=== PATIENT | female | born 1995 | race Caucasian/White ===

== ENCOUNTER 2020-08-14 18:35 | Outpatient (CLI) | payer MEDICAID ==
[~2020-08-14] VITALS: Ht 167.6 cm; Wt 101.8 kg
[2020-08-14 19:07] VITALS: BP 115/57
[2020-08-14 19:59] LABS: MICROSCOPIC NOT IND
[2020-08-14 20:10] LABS: AMPHETAMINE SCREEN, URINE Negative (Negative); BARBITURATE SCREEN, URINE Negative (Negative); BENZODIAZEPINE SCREEN, URINE Negative (Negative); CANNABINOID SCREEN, URINE Negative (Negative); COCAINE SCREEN, URINE Negative (Negative); METHADONE SCREEN, URINE Negative (Negative); OPIATE SCREEN, URINE Negative (Negative)
== END 2020-08-14 20:18 | disposition home or self-care (01) ==
LOC: LDOP 18:35
PROVIDERS: ATTEND Obstetrics & Gynecology
DX: O36.8130 Decreased fetal movements, third trimester, not applicable or unspecified (principal); Z3A.35 35 weeks gestation of pregnancy
CPT/HCPCS: 59025; 76819; 80307; 81003; 87086

== ENCOUNTER 2020-09-12 05:35 | Inpatient (IN) | payer MEDICAID ==
[~2020-09-12] VITALS: Ht 167.6 cm; Wt 106.8 kg
[2020-09-12] MEDS ORDERED: FENTANYL PF 100 MCG/2ML IVPush PRN (06:30)
[2020-09-12] MEDS ORDERED: SODIUM CITRATE/CITRIC ACID 30 ML UDC PO PRN (06:30)
[2020-09-12] MEDS ORDERED: OXYTOCIN 30U/ 0.9% NaCL 500ML 500 ML IV PRN (06:30)
[2020-09-12] MEDS ORDERED: METOCLOPRAMIDE 5 MG/ML, 2ML IVPush PRN (06:30)
[2020-09-12] MEDS ORDERED: D5%-LACTATED RINGERS 1,000 ML IV SCH (06:30)
[2020-09-12] MEDS ORDERED: TERBUTALINE 1 MG/ML, 1ML SQ PRN (06:30)
[2020-09-12] MEDS ORDERED: OXYTOCIN 30U/ 0.9% NaCL 500ML 500 ML IV ONE (06:30)
[2020-09-12] MEDS ORDERED: TERBUTALINE 1 MG/ML, 1ML IVPush PRN (06:30)
[2020-09-12] MEDS ORDERED: FENTANYL PF 100 MCG/2ML IV PRN (06:30)
[2020-09-12] MEDS ORDERED: LACTATED RINGERS 1,000 ML IV SCH ×2 (06:30→14:00)
[2020-09-12 07:05] LABS: BASOPHILS % (AUTO) 0 % (0-1); EOSINOPHILS % (AUTO) 1 % (1-7); LYMPHOCYTES % (AUTO) 22 % (22-44); MEAN CORPUSCULAR HEMOGLOBIN 31.7 pg (27.0-34.8); MEAN CORPUSCULAR HGB CONC 34.9 g/dL (32.4-35.8); MEAN PLATELET VOLUME 8.9 fL (7.4-10.4); MONOCYTES % (AUTO) 5 % (2-9); NEUTROPHILS % (AUTO) 72 % (42-75); PLATELET COUNT 199 x10^3/uL (130-400); RED BLOOD COUNT 3.46 x10^6/uL (3.82-5.3); RED CELL DISTRIBUTION WIDTH 12.8 % (9.6-15.2)
[2020-09-12 08:00] VITALS: BP 115/71
[2020-09-12] MEDS ORDERED: MISOPROSTOL 25 MCG TABLET ONE (08:06)
[2020-09-12 08:25] LABS: AMPHETAMINE SCREEN, URINE Negative (Negative); BARBITURATE SCREEN, URINE Negative (Negative); BENZODIAZEPINE SCREEN, URINE Negative (Negative); CANNABINOID SCREEN, URINE Negative (Negative); COCAINE SCREEN, URINE Negative (Negative); METHADONE SCREEN, URINE Negative (Negative); OPIATE SCREEN, URINE Negative (Negative)
[2020-09-12] MEDS ORDERED: MISOPROSTOL 25 MCG TABLET VG PRN (08:30)
[2020-09-12] MEDS ORDERED: PLEASE ENTER HEIGHT AND WEIGHT MC SCH ×2 (09:00)
[2020-09-12] MEDS ORDERED: BUPIVACAINE 0.25% ONE (13:16)
[2020-09-12] MEDS ORDERED: FENTANYL/BUPIV./NS/PF 250 ML EPIDCONT ONE (13:17)
[2020-09-12] MEDS ORDERED: EPHEDRINE 50 MG/ML, 1ML IVPush PRN (14:00)
[2020-09-12] MEDS ORDERED: FENTANYL/BUPIV./NS/PF 250 ML EPIDCONT SCH (14:00)
[2020-09-12] MEDS ORDERED: LACTATED RINGERS 1,000 ML IVBOLUS PRN (14:00)
[2020-09-12] MEDS ORDERED: LIDOCAINE 1%, 20ML ONE (16:32)
[2020-09-12] MEDS ORDERED: MISOPROSTOL 200 MCG TABLET ONE (16:33)
[2020-09-12] MEDS ORDERED: IBUPROFEN 600 MG TABLET ONE (19:00)
[2020-09-12] MEDS: OXYTOCIN 30U/ 0.9% NaCL 500ML 500 ML IV SCH (19:15)
[2020-09-12] MEDS: IBUPROFEN 600 MG TABLET PO PRN (19:15)
[2020-09-12] MEDS ORDERED: METHYLERGONOVINE 0.2 MG/ML IM PRN (20:00)
[2020-09-12] MEDS ORDERED: DOCUSATE 100 MG CAPSULE PO PRN (20:00)
[2020-09-12] MEDS ORDERED: HYDROcodone/APAP 5/325 TABLET PO PRN ×2 (20:00)
[2020-09-12] MEDS ORDERED: SIMETHICONE 80 MG CHEW TAB PO PRN (20:00)
[2020-09-12] MEDS ORDERED: ONDANSETRON 2MG/ML, 2ML IV PRN (20:00)
[2020-09-12] MEDS ORDERED: MISOPROSTOL 200 MCG TABLET PR PRN (20:00)
[2020-09-12 21:40] VITALS: BP 105/66
[2020-09-13 01:17] VITALS: BP 114/72
[2020-09-13] MEDS: IBUPROFEN 600 MG TABLET PO PRN ×2 (02:02→14:29)
[2020-09-13 02:33] LABS: BASOPHILS % (AUTO) 0 % (0-1); EOSINOPHILS % (AUTO) 1 % (1-7); LYMPHOCYTES % (AUTO) 19 % (22-44); MEAN CORPUSCULAR HEMOGLOBIN 31.2 pg (27.0-34.8); MEAN CORPUSCULAR HGB CONC 34.8 g/dL (32.4-35.8); MEAN PLATELET VOLUME 8.6 fL (7.4-10.4); MONOCYTES % (AUTO) 5 % (2-9); NEUTROPHILS % (AUTO) 76 % (42-75); PLATELET COUNT 175 x10^3/uL (130-400); RED BLOOD COUNT 3.37 x10^6/uL (3.82-5.3); RED CELL DISTRIBUTION WIDTH 12.8 % (9.6-15.2)
[2020-09-13 04:50] VITALS: BP 98/61
[2020-09-13] MEDS: OXYTOCIN 30U/ 0.9% NaCL 500ML 500 ML IV SCH (06:00)
[2020-09-13 07:45] VITALS: BP 115/71
[2020-09-13] MEDS ORDERED: PRENATAL VIT/IRON/FA 1 EACH TABLET PO SCH (09:00)
[2020-09-13 12:06] VITALS: BP 124/81
== END 2020-09-13 19:00 | disposition home or self-care (01) | DRG 807 ==
LOC: LDIP 05:35 → 2NW 21:17
PROVIDERS: ADMIT Obstetrics & Gynecology; ATTEND Obstetrics & Gynecology
PROC: 10E0XZZ Delivery of Products of Conception, External Approach (ICD-10-PCS; principal; 2020-09-12)
PROC: 0KQM0ZZ Repair Perineum Muscle, Open Approach (ICD-10-PCS; 2020-09-12)
PROC: 10907ZC Drainage of Amniotic Fluid, Therapeutic from Products of Conception, Via Natural or Artificial Opening (ICD-10-PCS; 2020-09-12)
PROC: 3E0P7VZ Introduction of Hormone into Female Reproductive, Via Natural or Artificial Opening (ICD-10-PCS; 2020-09-12)
PROC: 3E0R3BZ Introduction of Anesthetic Agent into Spinal Canal, Percutaneous Approach (ICD-10-PCS; 2020-09-12)
PROC: 00HU33Z Insertion of Infusion Device into Spinal Canal, Percutaneous Approach (ICD-10-PCS; 2020-09-12)
DX: O69.81X0 Labor and delivery complicated by cord around neck, without compression, not applicable or unspecified (principal); Z37.0 Single live birth; Z3A.39 39 weeks gestation of pregnancy; O70.1 Second degree perineal laceration during delivery; Z20.822 Contact with and (suspected) exposure to COVID-19
CPT/HCPCS: 36415; 80307; 85025; 86592; 86850; 86900; 87635; 87806; G0378; G0475; J2590; J3010; J7120

== ENCOUNTER 2020-11-11 14:24 | Day surgery (SDC) | payer MEDICAID ==
[~2020-11-11] VITALS: Ht 167.6 cm; Wt 101.7 kg
[2020-11-11] MEDS ORDERED: HYDR-2214 PO (14:46)
[2020-11-11] MEDS ORDERED: AMOX500T PO (14:46)
[2020-11-11] MEDS ORDERED: CHLORHEXIDINE 15 ML UDC PO ONE (15:00)
[2020-11-11] MEDS ORDERED: LACTATED RINGERS 1,000 ML IV SCH (15:00)
[2020-11-11 15:04] LABS: HCG UR SG 1.015 (1.003-1.030)
[2020-11-11] MEDS ORDERED: OXYcodone 5 MG/5 ML ORAL.SOL UDC PO PRN (15:30)
[2020-11-11] MEDS ORDERED: EPHEDRINE 50 MG/ML, 1ML IVPush PRN (15:30)
[2020-11-11] MEDS ORDERED: ACETAMINOPHEN 325 MG TABLET PO PRN ×2 (15:30→17:30)
[2020-11-11] MEDS ORDERED: HYDROmorphone 1 MG/ML, 1ML INJ IVPush PRN (15:30)
[2020-11-11] MEDS ORDERED: LORazepam 2 MG/ML, 1ML IVPush PRN (15:30)
[2020-11-11] MEDS ORDERED: MEPERIDINE/PF 25MG/0.5ML IVPush PRN (15:30)
[2020-11-11] MEDS ORDERED: hydrALAzine 20 MG/ML, 1ML IV PRN (15:30)
[2020-11-11] MEDS ORDERED: PROMETHAZINE 25 MG/ML, 1ML IVPush PRN (15:30)
[2020-11-11] MEDS ORDERED: ONDANSETRON 2MG/ML, 2ML IVPush PRN (15:30)
[2020-11-11] MEDS ORDERED: LABETALOL 5MG/ML, 20ML IV PRN (15:30)
[2020-11-11] MEDS ORDERED: BUPIVACAINE/PF-EPI 0.25% 1:200K ONE (15:43)
[2020-11-11] MEDS ORDERED: IBUP-1223 PO (15:43)
[2020-11-11] MEDS ORDERED: OXYC1TAB12 PO (15:43)
[2020-11-11] MEDS ORDERED: MIDAZOLAM 1 MG/ML, 2ML ONE (15:47)
[2020-11-11] MEDS ORDERED: FENTANYL PF 250 MCG/5ML ONE (15:47)
[2020-11-11] MEDS ORDERED: ALBUTEROL HFA 90 MCG/SPRAY ONE (15:54)
[2020-11-11] MEDS ORDERED: SUCCINYLCHOLINE 20 MG/ML, 10ML ONE (15:54)
[2020-11-11] MEDS ORDERED: DEXAMETHASONE 4 MG/ML, 1ML ONE (15:54)
[2020-11-11] MEDS ORDERED: KETOROLAC 30 MG/1 ML ONE (15:54)
[2020-11-11] MEDS ORDERED: ONDANSETRON 2MG/ML, 2ML ONE (15:54)
[2020-11-11] MEDS ORDERED: ROCURONIUM 10 MG/ML,10ML ONE (15:54)
[2020-11-11] MEDS ORDERED: GLYCOPYRROLATE 0.2MG/1ML, 5ML ONE (15:54)
[2020-11-11] MEDS ORDERED: NEOSTIGMINE 1 MG/ML, 10ML ONE (15:54)
[2020-11-11] MEDS ORDERED: CEFAZOLIN 1,000 MG ONE (15:54)
[2020-11-11] MEDS ORDERED: PROPOFOL 10 MG/ML, 20ML ONE (15:54)
[2020-11-11] MEDS ORDERED: METHOCARBAMOL 1,000 MG in DEXTROSE 5% 100 ML IV PRN (16:30)
[2020-11-11] MEDS ORDERED: OXYcodone 5 MG/5 ML ORAL.SOL UDC ONE (16:58)
[2020-11-11] MEDS ORDERED: FENTANYL PF 100 MCG/2ML ONE ×2 (16:58→17:15)
[2020-11-11] MEDS: FENTANYL PF 100 MCG/2ML IV PRN ×3 (17:15→17:30)
[2020-11-11] MEDS ORDERED: ACETAMINOPHEN 650 MG/20.3 ML UDC ONE (17:16)
[2020-11-11 18:15] VITALS: BP 92/50
[2020-11-11] MEDS ORDERED: IBUPROFEN 600 MG TABLET PO PRN (20:00)
[2020-11-11] MEDS ORDERED: ONDANSETRON 2MG/ML, 2ML IV PRN (20:00)
[2020-11-11] MEDS ORDERED: HYDROmorphone 1 MG/ML, 1ML INJ IV PRN (20:00)
[2020-11-11] MEDS ORDERED: OXYcodone/APAP 5/325MG TABLET PO PRN (20:00)
== END 2020-11-11 21:30 | disposition home or self-care (01) ==
LOC: OR 14:24 → 4NE 15:00 → OR 21:30
PROVIDERS: ATTEND Obstetrics & Gynecology
DX: Z30.2 Encounter for sterilization (principal); Z20.822 Contact with and (suspected) exposure to COVID-19; Z79.899 Other long term (current) drug therapy; Z80.49 Family history of malignant neoplasm of other genital organs; Z83.6 Family history of other diseases of the respiratory system
CPT/HCPCS: 58670; 81025; 87635; 88302; J0330; J0690; J1100; J1885; J2250; J2405; J2704; J2710; J3010; G0378